=== PATIENT | male | born 1945 | race Caucasian/White ===

== ENCOUNTER 2019-04-13 11:26 | Outpatient (CLI) | payer MEDICARE, OTHER ==
--- NOTE | 2019-04-18 16:23 | XRAY Report ---
Reason: L 3RD DIGIT TRIGGER FINGER Procedure Date: 04/13/2019 Accession Number: [id number] / [id number] Procedure: XR - Hand 3 View LT CPT Code: FULL RESULT: EXAM: LEFT HAND RADIOGRAPHY EXAM DATE: 04/13/2019 11:44 AM. CLINICAL HISTORY: Left 3rd digit trigger finger. COMPARISON: None. TECHNIQUE: 3 views. FINDINGS: Bones: Normal. No fractures or bone lesions. Joints: There are mild degenerative changes at the first carpometacarpal articulation. There is mild joint space narrowing of predominantly distal interphalangeal joints. No specific abnormality is identified in the third ray compared to the other fingers. Soft Tissues: Normal. No soft tissue swelling. IMPRESSION: Mild degenerative changes. RADIA
== END 2019-04-13 11:27 | disposition home or self-care (01) ==
LOC: DI 11:26
PROVIDERS: ATTEND Internal Medicine
DX: M18.12 Unilateral primary osteoarthritis of first carpometacarpal joint, left hand (principal); M19.042 Primary osteoarthritis, left hand

== ENCOUNTER 2019-10-28 10:12 | Outpatient (CLI) | payer MEDICARE, OTHER ==
--- NOTE | 2019-10-28 14:39 | XRAY Report ---
Reason: PT 5TH DIGIT "LOOSE" AFTER TRAUMA Procedure Date: 10/28/2019 Accession Number: [id number] / [id number] Procedure: XR - Toe(s) LT CPT Code: Final Report FULL RESULT: EXAM: LEFT TOE RADIOGRAPHY EXAM DATE: 10/28/2019 10:39 AM. CLINICAL HISTORY: Hit toe in May, fifth digit "loose" after trauma. COMPARISON: None. TECHNIQUE: 3 views. FINDINGS: Bones: There is a comminuted fracture of the fifth proximal phalangeal diaphysis with evidence of ongoing remodeling including periosteal reaction and partial osseous bridging. AP view is suggestive of potential distal intra-articular extension. Joints: Normal. No subluxations. Soft Tissues: Normal. No soft tissue swelling. IMPRESSION: Ongoing remodeling of comminuted proximal fifth phalanx fracture. RADIA
== END 2019-10-28 10:13 | disposition home or self-care (01) ==
LOC: DI 10:12
PROVIDERS: ATTEND Internal Medicine
DX: S92.512D Displaced fracture of proximal phalanx of left lesser toe(s), subsequent encounter for fracture with routine healing (principal)
CPT/HCPCS: 73660

== ENCOUNTER 2020-10-23 02:05 | Outpatient (CLI) | payer MEDICARE, OTHER | END 2020-10-23 02:06 | disposition critical access hospital (66) | LOC: EMS 02:05 | PROVIDERS: ATTEND Surgery | DX: M79.601 Pain in right arm (principal); R20.0 Anesthesia of skin | CPT/HCPCS: A0425; A0429 ==

== ENCOUNTER 2020-10-23 02:21 | Emergency (ER) | payer MEDICARE, OTHER ==
[2020-10-23] MEDS ORDERED: ACETAMINOPHEN 325 MG TABLET PO STA (02:31)
--- NOTE | 2020-10-23 02:32 | ED Physician Documentation ---
PD HPI UPPER EXT INJURY - Stated complaint Stated Complaint: R ARM NUMBNESS - History obtained from History obtained from: Patient, EMS - History of Present Illness Location: Right, Shoulder, Other (he states he awoke from sleep and noted right shoulder pain and feeling of complete weakness and numbness in right arm. Also laceration on bridge of nose. Denies fall/injury. States he had had some 3 drinks earlier. Slept on bed, and not on hard surface. Denies neck pain nor headache.) Type of injury: Other (he is not aware of a fall nor injury but does have shoulder pain/tenderness and lac on bridge of nose. He states had been drinking earlier in the evening.) Where injury occurred: Home Timing - details: Abrupt onset, Still present (he says the arm is starting to have some feeling come back but still cannot move it.) Improved by: Rest Worsened by: Moving, Palpating (at proximal humerus area.) Associated symptoms: Weakness (right arm), Numbness (just right arm). No: Swelling, Discolored Similar symptoms before: Has not had sx before Recently seen: Not recently seen Review of Systems Constitutional: denies: Fever Nose: denies: Rhinorrhea / runny nose, Congestion Throat: denies: Sore throat Cardiac: denies: Chest pain / pressure Respiratory: denies: Cough GI: denies: Abdominal Pain, Vomiting, Diarrhea Skin: reports: Laceration (s) (small on bridge of nose, unknown injury.) Musculoskeletal: denies: Neck pain, Back pain Neurologic: reports: Focal weakness, Numbness. denies: Generalized weakness, Near syncope, Altered mental status, Headache PD PAST MEDICAL HISTORY - Past Medical History Cardiovascular: None Respiratory: None Neuro: None Endocrine/Autoimmune: None - Present Medications Home Medications: Ambulatory Orders Medication Instructions Recorded Confirmed Aspirin [Aspirin EC] 10/23/20 10/23/20 Simvastatin [Zocor] 10/23/20 metFORMIN [Glucophage] 10/23/20 - Allergies Allergies/Adverse Reactions: Allergies Allergy/AdvReac Type Severity Reaction Status Date / Time No Known Drug Allergies Allergy Verified 10/23/20 02:41 PD ED PE NORMAL - Vitals Vital signs reviewed: Yes - General General: Alert and oriented X 3, Well developed/nourished - HEENT HEENT: Pharynx benign (no tongue lesions.), Other (head not tender. Nose with small lac on bridge. No nasal deformity nor tenderness. ) - Neck Neck: Supple, no meningeal sign, No bony TTP, No adenopathy - Cardiac Cardiac: RRR, No murmur - Respiratory Respiratory: Clear bilaterally - Abdomen Abdomen: Soft, Non tender - Back Back: No CVA TTP, No spinal TTP - Derm Derm: Normal color, Warm and dry - Extremities Extremities: Other (right shoulder with tenderness with apparent anterior dislocation. The right arm is without movement. Minimal sensation to pinprick around elbow and proximal forearm. No sensation in hand. Has cap refill and pulses in wrist/fingers. ) - Neuro Neuro: Alert and oriented X 3, Normal speech Results - Vitals Vitals: Vital Signs - 24 hr 10/23/20 10/23/20 02:34 02:43 Temperature 36.2 C L 36.2 C L Heart Rate 82 82 Respiratory 18 18 Rate Blood Pressure 162/89 H 162/89 H O2 Saturation 97 97 Oxygen O2 Source Room air - Rads (name of study) right shoulder Radiology: Prelim report reviewed (anterior dislocation without fracture), See rad report post reduction Radiology: Prelim report reviewed (improved location, no fractures), See rad report Procedures - Reduction Body part reduced: Right, Shoulder Fracture or dislocation: Dislocation Anesthesia: Other (no medication needed) Shoulder reduction technique: [place] / ext rotation Reduction aftercare: Xray confirms reduction, Alignment improved, Sling, Patient tolerated well. No: NV intact (he is starting to have some slight movement of forearm, and can move shoulder better now for sure. Presume neuropraxia with the dislocation and will give it a day or so in sling to see if improves.) PD MEDICAL DECISION MAKING - ED course Complexity details: considered differential (Injury of the right shoulder and a small laceration on the bridge of the nose that does not need any sutures or tape. One would presume he fell while intoxicated without remembering. No stigmata of seizure and no headache or altered mentation.), d/w patient Departure - Departure Disposition: 01 Home, Self Care Clinical Impression: Acute radial nerve palsy of right upper extremity Laceration of nose Qualifiers: Encounter type: initial encounter Qualified Code(s): S01.21XA - Laceration without foreign body of nose, initial encounter Anterior shoulder dislocation Qualifiers: Encounter type: initial encounter Laterality: right Qualified Code(s): S43.014A - Anterior dislocation of right humerus, initial encounter Condition: Stable Record reviewed to determine appropriate education?: Yes Instructions: ED Dislocation Shoulder Redu Follow-Up: David Daugherty MD [Primary Care Provider] - Dashawn Romero MD [Provider Admit Priv/Credential] - Comments: I presume you had fallen or struck your shoulder causing the dislocation. The dislocation can put a stretch on the nerves that run through the shoulder causing the weakness and numbness in your arm. With the shoulder back in place I would anticipate improvement in the nerve over the next several hours to a day or so. Use a sling to provide support for the shoulder and arm. You will want the arm in the sling fairly regularly for 2 to 3 weeks. In order to dislocate it which you would have had to tear some of the rotator cuff muscles and these need time to heal. Follow-up with orthopedics in about 1 to 1-1/2 weeks for recheck of the shoulder. Return if the arm is not having improved sensation and movement however in the next day or 2. Tylenol or ibuprofen as needed for pains. For the superficial laceration on your nose, just clean with soap and water and apply ointment once or twice daily. Recheck if infection.
[2020-10-23 02:40] VITALS: BP 162/89
--- NOTE | 2020-10-23 07:12 | XRAY Report ---
PROCEDURE: Shoulder 3 View RT INDICATIONS: shoulder pain and arm weakness TECHNIQUE: 3 views of the shoulder were acquired. COMPARISON: Correlation is made with prior chest radiograph, 06/14/2016 FINDINGS: Bones: There is a right anterior shoulder dislocation. No adelina associated fracture is seen. No adelina bony [place] fracture is seen. Degenerative changes are seen, with mild subacromial spurring. No suspicious bony lesions. Visualize d ribs appear intact. Soft tissues: No suspicious soft tissue calcifications. Right axillary clips are seen. IMPRESSION: Right anterior shoulder dislocation. Note: No significant discrepancy from the preliminary report. Reviewed by: Rolando Moore MD on 10/23/2020 6:11 AM [facility] Approved by: Rolando Moore MD on 10/23/2020 6:11 AM [facility] Station ID: [id number]
--- NOTE | 2020-10-23 07:13 | XRAY Report ---
PROCEDURE: Shoulder 2 View RT INDICATIONS: post reduction TECHNIQUE: 2 views of the shoulder were acquired. COMPARISON: Prior 10/23/2020 images FINDINGS: Bones: The previously seen shoulder dislocation has been reduced. No adelina fracture can be seen. No s uspicious bony lesions. Visualized ribs appear intact. Soft tissues: No suspicious soft tissue calcifications. Right axillary clips are seen. Mild interst itial prominence is seen within the visualized right lung. IMPRESSION: Right shoulder relocation. Mild interstitial prominence of the right lung. Differential diagnosis includes artifact from incompl ete inspiratory result as well as atypical infection and pulmonary edema. Please consider a short-ter m follow-up 2 view chest series (performed in deep inspiration) for further evaluation. Note: No significant discrepancy from the preliminary report. Reviewed by: Rolando Moore MD on 10/23/2020 6:12 AM [facility] Approved by: Rolando Moore MD on 10/23/2020 6:12 AM [facility] Station ID: [id number]
== END 2020-10-23 04:11 | disposition home or self-care (01) ==
LOC: EDUNIT# → ED 02:21
DX: S43.014A Anterior dislocation of right humerus, initial encounter (principal); S44.21XA Injury of radial nerve at upper arm level, right arm, initial encounter; S01.21XA Laceration without foreign body of nose, initial encounter; X58.XXXA Exposure to other specified factors, initial encounter; Y92.009 Unspecified place in unspecified non-institutional (private) residence as the place of occurrence of the external cause; Z79.82 Long term (current) use of aspirin
CPT/HCPCS: 23650; 73030; 99283; 99284; A9270

== ENCOUNTER 2020-10-26 11:24 | Emergency (ER) | payer MEDICARE, OTHER ==
--- NOTE | 2020-10-26 12:31 | ED Physician Documentation ---
History of Present Illness - Stated complaint Stated Complaint: RT ARM NUMBNESS - Chief complaint Chief Complaint: Trauma Ext - History obtained from History obtained from: Patient - History of Present Illness Pain level max: 3 Pain level now: 2 - Additonal information Additional information: 75-year-old male presents to the emergency department today with right arm numbness. He states he had a shoulder dislocation 3 days ago. He states that that feels improved and the numbness around the shoulder itself is better, however his hand and forearm are still numb. He states he has tingling in the forearm, the hand is completely numb. Nothing makes it better or worse. No recurrent fall. He states 3 days ago he was drinking and fell in the bathroom. He states that he landed on the bathtub. No other neurological deficits. No difficulty with speech. No headache. No neck or back pain. Patient is right- handed. Review of Systems Constitutional: denies: Fever, Chills GI: denies: Vomiting, Diarrhea Skin: denies: Rash Musculoskeletal: denies: Neck pain, Back pain Neurologic: denies: Headache, Head injury, LOC PD PAST MEDICAL HISTORY - Past Medical History Past Medical History: Yes Cardiovascular: None Respiratory: None Neuro: None Endocrine/Autoimmune: None Derm: Other - Past Surgical History Past Surgical History: Yes General: Cholecystectomy Ortho: Rotator cuff repair Derm: Skin cancer surgery - Present Medications Home Medications: Ambulatory Orders Medication Instructions Recorded Confirmed Aspirin [Aspirin EC] 81 mg PO DAILY 10/23/20 10/26/20 Simvastatin [Zocor] 10 mg PO DAILY 10/23/20 10/26/20 metFORMIN [Glucophage] 500 mg PO DAILY 10/23/20 10/26/20 Telmisartan/Hydrochlorothiazid 1 tab PO DAILY 10/26/20 10/26/20 [Micardis Hct 80-12.5 mg Tablet] - Allergies Allergies/Adverse Reactions: Allergies Allergy/AdvReac Type Severity Reaction Status Date / Time No Known Drug Allergies Allergy Verified 10/26/20 11:34 - Social History Does the pt smoke?: No Smoking Status: Never smoker Does the pt drink ETOH?: Yes ETOH Use: Liquor Does the pt have substance abuse?: No - Immunizations Immunizations are current?: Yes - POLST Patient has POLST: No PD ED PE NORMAL - Vitals Vital signs reviewed: Yes - General General: Alert and oriented X 3, No acute distress - HEENT HEENT: Moist mucous membranes, Other (No scalp hematomas. Small laceration to the bridge of the nose.) - Neck Neck: Supple, no meningeal sign, No bony TTP, Other (No step-off or deformity. Full range of motion without pain.) - Cardiac Cardiac: RRR - Respiratory Respiratory: No respiratory distress, Clear bilaterally - Abdomen Abdomen: Soft, Non tender, Non distended - Derm Derm: Warm and dry - Neuro Neuro: Alert and oriented X 3 - Psych Psych: Normal mood, Normal affect - Free text exam Free text exam: No tenderness or deformity over the right upper extremity. No tenderness about the glenohumeral joint. Vascularly intact. Brisk cap refill. Mild bruising to the bicep. Decreased sensation over the dorsum and palmar aspect of the hand. Limited range of motion of the fingers secondary to "numbness". axillary nerve intact. No tenderness over the forearm or the hand. Results - Vitals Vitals: Vital Signs - 24 hr 10/26/20 10/26/20 11:35 13:17 Temperature 36.5 C 36.6 C Heart Rate 100 77 Respiratory 16 16 Rate Blood Pressure 158/106 H 135/76 H O2 Saturation 96 98 Oxygen O2 Source Room air - Rads (name of study) R humerus xray Radiology: Prelim report reviewed, EMP read contemporaneously, See rad report (No acute abnormality) r forearm xray Radiology: Prelim report reviewed, EMP read contemporaneously, See rad report (No acute abnormality) PD MEDICAL DECISION MAKING - ED course Complexity details: reviewed results, re-evaluated patient, considered differential, d/w patient, d/w nursing consultant ED course: Discussed the case with orthopedics, Dr. Gu. Patient appears to have a neuropraxia from the shoulder dislocation. Unclear how long the shoulder was dislocated for. This may take days to weeks to heal. He is improving, albeit gradually. We will have him continue to wear the sling. We will have him follow-up with orthopedics. No acute findings on x-ray today. No recurrent dislocation. Patient counseled regarding signs and symptoms for which I believe and urgent re-evaluation would be necessary. Patient with good understanding of and agreement to plan and is comfortable going home at this time This document was made in part using voice recognition software. While efforts are made to proofread this document, sound alike and grammatical errors may occur. Departure - Departure Disposition: 01 Home, Self Care Clinical Impression: Neurapraxia of right upper extremity Qualifiers: Encounter type: initial encounter Qualified Code(s): S44.91XA - Injury of un specified nerve at shoulder and upper arm level, right arm, initial encounter Condition: Good Instructions: ED Palsy Radial Nerve, ED Palsy Unlar Nerve Follow-Up: [facility] [Provider Group] David Daugherty MD [Primary Care Provider] - Luis Gu MD [Provider Admit Priv/Credential] - Comments: this may take several weeks to months to fully recover. You need to follow up with orthopedics as previously instructed. Discharge Date/Time: 10/26/20 13:58
[2020-10-26 13:18] VITALS: BP 135/76
--- NOTE | 2020-10-26 13:24 | XRAY Report ---
PROCEDURE: Forearm RT INDICATIONS: fall, R arm pain TECHNIQUE: 2 views of the forearm were acquired. COMPARISON: Concurrent study of the right humerus. FINDINGS: Bones: No fractures or dislocations. No suspicious bony lesions. Soft tissues: No suspicious soft tissue calcifications or masses. IMPRESSION: 1. No fracture or dislocation in the forearm. Reviewed by: Yohannes Sanon MD on 10/26/2020 1:23 PM [facility] Approved by: Yohannes Sanon MD on 10/26/2020 1:23 PM PST Station ID: [id number]
--- NOTE | 2020-10-26 13:24 | XRAY Report ---
PROCEDURE: Humerus RT INDICATIONS: fall, R arm pain TECHNIQUE: 3 views of the humerus were acquired. COMPARISON: None. FINDINGS: Bones: No fractures or dislocations. No suspicious bony lesions. Soft tissues: No suspicious soft tissue calcifications. There are surgical clips in the right axilla ry region partially visualized. IMPRESSION: 1. No fracture or dislocation of the humerus. Reviewed by: Yohannes Sanon MD on 10/26/2020 1:22 PM [facility] Approved by: Yohannes Sanon MD on 10/26/2020 1:22 PM PST Station ID: [id number]
== END 2020-10-26 13:58 | disposition home or self-care (01) ==
LOC: ED 11:24
DX: S44.21XA Injury of radial nerve at upper arm level, right arm, initial encounter (principal); S01.21XA Laceration without foreign body of nose, initial encounter; W18.30XA Fall on same level, unspecified, initial encounter; Y92.002 Bathroom of unspecified non-institutional (private) residence as the place of occurrence of the external cause; Z79.82 Long term (current) use of aspirin
CPT/HCPCS: 99283; 99284

== ENCOUNTER 2021-02-03 07:41 | Outpatient (CLI) | payer MEDICARE, OTHER ==
[2021-02-03] MEDS ORDERED: IOPAMIDOL-300 100 ML VIAL ONE (07:44)
[2021-02-03] MEDS ORDERED: IOPAMIDOL-300 100 ML VIAL IVP ONE (08:32)
--- NOTE | 2021-02-03 15:24 | CT Report ---
PROCEDURE: IVP INDICATIONS: HEMATURIA CONTRAST: IV CONTRAST: Isovue 300 ml: 140 PO CONTRAST: *NO PO CONTRAST TECHNIQUE: After the administration of intravenous contrast, 5 mm thick sections acquired from the diaphragms to the symphysis. 5 mm thick coronal and sagittal reformats were acquired. For radiation dose reducti on, the following was used: automated exposure control, adjustment of mA and/or kV according to leonardo ent size. COMPARISON: None. FINDINGS: Image quality: Excellent. Lung bases: Lung bases are clear. Heart size is normal. Urinary system: Both kidneys are normal in size and enhancement. Contrast-filled renal calyces are normal in morphology. Contrast filled portions of both ureters are normal in caliber. Urinary bladde r wall is trabeculated. There is thickening of the posterior superior urinary bladder wall measuring roughly 10 mm in thickness (series 10 image 34). Solid organs: Liver and spleen are normal in size. Indeterminate low-density ill-defined focus withi n the right hepatic lobe posteriorly measuring 12 mm (series 6 image 25). Gallbladder is surgically a bsent Biliary system is non dilated. Pancreas enhances normally. No adrenal nodules. Peritoneum and bowel: Diverticulosis of the descending and sigmoid colon. No evidence of acute divert iculitis. Appendix is not seen. No evidence of appendicitis. Bowel loops demonstrate otherwise normal wall thickness and caliber. No free fluid or air. Nodes and vessels: No retroperitoneal or mesenteric adenopathy by size criteria. Aorta and inferior vena cava are normal in size. Abdominal wall: No ventral hernias. Pelvis: No pathologic free pelvic fluid. No inguinal hernias or adenopathy. Bones: No suspicious bony lesions. No vertebral body compression fractures. IMPRESSION: 1. No evidence of urinary tract calcification, nor obstruction. 2. No evidence of renal neoplasm. 3. Thickening of the posterior superior urinary bladder, possibly neoplastic. Cystoscopy is recommend ed for further assessment. 4. Urinary bladder trabeculation, consistent with chronic bladder outlet obstruction. Reviewed by: Sukhi Gardner MD on 02/03/2021 3:23 PM PDT Approved by: Sukhi Gardner MD on 02/03/2021 3:23 PM PDT Station ID: [id number]
== END 2021-02-03 07:42 | disposition home or self-care (01) ==
LOC: DI 07:41
PROVIDERS: ATTEND Physician Assistant Medical
DX: R93.41 Abnormal radiologic findings on diagnostic imaging of renal pelvis, ureter, or bladder (principal)
CPT/HCPCS: 74178; Q9967

== ENCOUNTER 2021-06-14 14:05 | Outpatient (CLI) | payer MEDICARE, OTHER | END 2021-06-14 14:06 | disposition home or self-care (01) | LOC: LAB.N 14:05 | PROVIDERS: ATTEND Physician Assistant | DX: Z01.812 Encounter for preprocedural laboratory examination (principal); Z20.822 Contact with and (suspected) exposure to COVID-19 ==

== ENCOUNTER 2021-06-25 09:10 | Outpatient (CLI) | payer MEDICARE, OTHER ==
[2021-06-25 12:19] LABS: CALCIUM 9.1 mg/dL (8.5-10.3); CREATININE 1.2 mg/dL (0.6-1.2); POTASSIUM 4.1 mmol/L (3.5-5.0)
== END 2021-06-25 09:11 | disposition home or self-care (01) ==
LOC: LAB.N 09:10
PROVIDERS: ATTEND Specialist
DX: D41.4 Neoplasm of uncertain behavior of bladder (principal); Z87.442 Personal history of urinary calculi; N40.0 Benign prostatic hyperplasia without lower urinary tract symptoms; R31.0 Gross hematuria
CPT/HCPCS: 36415; 80048

== ENCOUNTER 2021-06-25 09:15 | Outpatient (CLI) | payer MEDICARE, OTHER ==
--- NOTE | 2021-06-25 10:08 | XRAY Report ---
PROCEDURE: Abdomen 1 View X-Ray INDICATIONS: RETENTION OF URINE TECHNIQUE: 2 AP views of the abdomen were acquired. COMPARISON: CT IVP 02/03/2021 FINDINGS: Surgical changes and devices: Bilateral percutaneous nephrostomy tubes and a right ureteral stent are present. Cholecystectomy clips are noted.. Bowel: No pneumoperitoneum. The bowel gas pattern is normal. Soft tissues: No masses; visualized solid organ contours appear normal in size. No suspicious abdom inal calcifications. A phlebolith is noted in the pelvis. Bones: No suspicious bony abnormalities. Degenerative changes are seen in the hips and spine. IMPRESSION: Bilateral percutaneous nephrostomy tubes and a right ureteral stent are present. No suspicious calcif ication is seen. Reviewed by: Ron Payne MD on 06/25/2021 10:06 AM PDT Approved by: Ron Payne MD on 06/25/2021 10:06 AM PDT Station ID: [id number]
== END 2021-06-25 09:16 | disposition home or self-care (01) ==
LOC: DI.N 09:15
PROVIDERS: ATTEND Specialist
DX: D41.4 Neoplasm of uncertain behavior of bladder (principal); Z87.442 Personal history of urinary calculi; N40.0 Benign prostatic hyperplasia without lower urinary tract symptoms; R31.0 Gross hematuria; Z93.6 Other artificial openings of urinary tract status; Z96.0 Presence of urogenital implants
CPT/HCPCS: 36415; 80048

== ENCOUNTER 2021-08-09 06:55 | Day surgery (SDC) | payer MEDICARE, OTHER ==
[2021-08-09] MEDS ORDERED: CEFAZOLIN SODIUM IN 0.9 % NACL 2 GM/100 ML BAG IV ONE (07:14)
[2021-08-09] MEDS ORDERED: LACTATED RINGERS 1,000 ML IV ONE ×2 (07:42→10:22)
--- NOTE | 2021-08-09 08:58 | ANESTHESIA ---
Pre-Anesthesia VS, & Labs - Diagnosis bladder cancer - Procedure port placement Vital Signs: Temp Pulse Resp BP Pulse Ox 36.0 C L 88 18 131/80 H 100 08/09/21 07:46 08/09/21 07:46 08/09/21 07:46 08/09/21 07:46 08/09/21 07:46 Height: 5 ft 10 in Weight (kg): 76 kg Body Mass Index: 24.0 BMI Classification: Healthy weight - NPO >8 hours - Lab Results Current Lab Results: Laboratory Tests 08/09/21 08:10: POC Whole Bld Glucose 113 H Home Medications and Allergies Aspirin [Aspirin EC] 81 mg PO DAILY 10/23/20 Simvastatin [Zocor] 40 mg PO DAILY 10/23/20 metFORMIN [Glucophage] 750 mg PO BID 10/23/20 Telmisartan/Hydrochlorothiazid [Micardis Hct 80-12.5 mg Tablet] 1 tab PO DAILY 10/26/20 Multivitamin 1 tab PO DAILY 08/02/21 OLANZapine [Zyprexa Zydis] 1 tab PO DAILY 08/02/21 Ondansetron Odt [Zofran Odt] 2 tab PO Q8HR PRN 08/02/21 Prochlorperazine Maleate [Compazine] 1 tab PO Q6HR PRN 08/02/21 dexAMETHasone [Decadron] 4 mg PO DAILY 08/02/21 Allergies/Adverse Reactions: Allergies Allergy/AdvReac Type Severity Reaction Status Date / Time No Known Drug Allergies Allergy Verified 08/02/21 10:54 Anes History & Medical History - Anesthetic History Anesthesia Complications: reports: No previous complications - Medical History Cardiovascular: reports: None Pulmonary: reports: None Gastrointestinal: reports: None Urinary: reports: Other Neuro: reports: None Musculoskeletal: reports: None Endocrine/Autoimmune: reports: None Skin: reports: Other Smoking Status: Former smoker History of Cancer?: Yes - Surgical History General: reports: Cholecystectomy Urologic: reports: Ureterolithotomy (stones) Orthopedic: reports: Rotator cuff repair Dermatologic: reports: Skin cancer surgery Exam General: Alert, Oriented x3 Dental: WNL Mouth Opening: Greater than 4 Fingerbreadths Neck Mobility: Normal Mallampati classification: II Thyromental Distance: greater than 6 cm Respiratory: Lungs clear Cardiovascular: Regular rate, Normal S1, Normal S2 Mental/Cognitive Status: Alert/Oriented X3 Plan Anesthesia Type: General, MAC, Total IV Consent for Procedure(s) Verified and Reviewed: Yes Code Status: Attempt Resuscitation ASA classification: 3-Severe systemic disease Is this case an emergency?: No
[2021-08-09] MEDS ORDERED: BUPIVACAINE 0.5% PF 10 ML VIAL ONE (09:15)
[2021-08-09] MEDS ORDERED: LIDOCAINE 2%-EPI 1:100000 20 ML MDV ONE (09:15)
[2021-08-09] MEDS ORDERED: PROPOFOL 500 MG/50 ML 500 MG/50 ML VIAL ONE (09:33)
[2021-08-09] MEDS ORDERED: LIDOCAINE 1%-EPI 1:100000 20 ML MDV SUBQ ONE ×3 (09:55)
[2021-08-09] MEDS ORDERED: BUPIVACAINE 0.5% PF 30 ML VIAL SUBQ ONE ×3 (09:56)
--- NOTE | 2021-08-09 10:17 | OPERATIVE REPORT ---
Operative Report - General Procedure Date: 08/09/21 Planned Procedure: Left subclavian port Pre-Op Diagnosis: Bladder cancer Procedure Performed: Left subclavian infusa-port Post Op Diagnosis: Bladder - Procedure Note Primary Surgeon: Polina Anesthesia Provider: JAGRUTI Cano Anesthesia Technique: MAC Estimated Blood Loss (mL): 10 Indications: Port for chemotherapy Findings: Port in good position in the superior vena cava Complications: none apparent - Other Other Information/Narrative: After obtaining informed consent, the patient is brought to the operating room and placed in supine position on the operating table. Following successful induction of sedation with monitored anesthesia care and appropriate padding of all bony prominences, the left chest and neck were prepped and draped in the standard surgical fashion. A timeout was held per scope protocol. All elements of the surgical safety checklist were followed before, during, and after the procedure. Following infiltration with local anesthetic to create a field block, the left subclavian vein was accessed in the deltopectoral groove. The J-wire was gently placed into the vein. Fluoroscopy was used to confirm the position of the wire and in the subclavian vein. We anesthetized the existing healed scar in the area around it for placement of the port itself. An incision was created here and carried down through the skin and subcutaneous tissue. A pocket was created with blunt dissection. The port tubing was attached to the tunneling device and passed from the access site of the vein into the pocket. It was trimmed to an appropriate length and the port attached. The port was sewn into place in the pocket. The dilator and introducer were then passed over the J-wire that was in the subclavian vein. The J-wire and dilator were removed leaving only the introducer. The tubing was then passed through the introducer and the introducer cracked and removed per wheel truer's directions. The port was then checked for function and flushed and elina easily. Additional local anesthetic was applied to the chest wall. The port pocket was closed with interrupted Vicryl sutures and Monocryl stitches were placed in both skin incision sites. All sponge, needle, and instrument counts were correct at the conclusion of the case. Chest x-ray in the postanesthesia care unit revealed the port in good position in the superior vena cava without evidence of pneumothorax.
--- NOTE | 2021-08-09 10:31 | XRAY Report ---
PROCEDURE: OR Port-A-Cath INDICATIONS: port placement TECHNIQUE: Single intraoperative highly collimated fluoroscopic image of the chest. COMPARISON: None. FINDINGS: Highly comminuted intraoperative fluoroscopic image of the chest demonstrates a partially visualized catheter with distal tip in the inferior aspect of the SVC. IMPRESSION: Highly comminuted intraoperative fluoroscopic image of the chest demonstrates a partially visualized catheter with distal tip in the inferior aspect of the SVC. Reviewed by: Pete Bernal MD on 08/09/2021 10:30 AM PDT Approved by: Pete Bernal MD on 08/09/2021 10:30 AM PDT Station ID: [id number]
[2021-08-09 10:50] VITALS: BP 115/72
--- NOTE | 2021-08-09 10:50 | XRAY Report ---
PROCEDURE: Chest for Line Placement INDICATIONS: Port placement TECHNIQUE: One view of the chest was acquired. COMPARISON: 07/28/2021 FINDINGS: Surgical changes and devices: Left chest wall Port-A-Cath tip is in SVC. Surgical clips are again see n in right axilla. Lungs and pleura: No pleural effusions or pneumothorax. Lungs are clear. Mediastinum: Mediastinal contours appear normal. Heart size is normal. Bones and chest wall: No suspicious bony lesions. Overlying soft tissues appear unremarkable. IMPRESSION: Left chest wall Port-A-Cath tip is in the region of SVC. No focal infiltrate, pleural effusion or pne umothorax. Reviewed by: Hay Herbert MD on 08/09/2021 10:48 AM PDT Approved by: Hay Herbert MD on 08/09/2021 10:48 AM PDT Station ID: [id number]
--- NOTE | 2021-08-09 16:36 | ANESTHESIA POST OP EVALUATION ---
Anesthesia Post Eval - Post Anesthesia Eval Vitals: Last Vital Signs Temp 36.9 C 08/09/21 10:49 Pulse 57 L 08/09/21 10:49 Resp 12 08/09/21 10:49 BP 115/72 08/09/21 10:49 Pulse Ox 100 08/09/21 10:49 CV Function Including HR & BP: Stable Pain Control: Satisfactory Nausea & Vomiting: Negative Mental Status: Baseline Respiratory Status: Airway Patent Hydration Status: Satisfactory Anesthesia Complications: None
== END 2021-08-09 06:56 | disposition home or self-care (01) ==
LOC: SDS 06:55
PROVIDERS: ATTEND Surgery
DX: C67.9 Malignant neoplasm of bladder, unspecified (principal); I10 Essential (primary) hypertension; E11.9 Type 2 diabetes mellitus without complications; N40.0 Benign prostatic hyperplasia without lower urinary tract symptoms; Z79.82 Long term (current) use of aspirin; Z79.84 Long term (current) use of oral hypoglycemic drugs; Z79.52 Long term (current) use of systemic steroids; Z79.899 Other long term (current) drug therapy; Z87.891 Personal history of nicotine dependence; Z87.828 Personal history of other (healed) physical injury and trauma; Z85.820 Personal history of malignant melanoma of skin
CPT/HCPCS: 36561; 71045; C1788; J0690; J7120

== ENCOUNTER 2021-12-28 08:41 | Outpatient (CLI) | payer MEDICARE, OTHER ==
--- NOTE | 2021-12-28 18:00 | Ultrasound Report ---
PROCEDURE: Retroperitoneal INDICATIONS: BLADDER CA TECHNIQUE: Real-time scanning was performed of the retroperitoneal organs, with image documentation. COMPARISON: None. FINDINGS: Kidneys: Kidneys are normal in size. Right kidney measures 9.2 cm long; left kidney measures 10.9 c m long. Right renal cortical thickness is 1.3 cm; left renal cortical thickness is 1.4 cm. No solid masses, hydronephrosis, or nephrolithiasis. Bladder: Surgically absent Miscellaneous: No free pelvic fluid. IMPRESSION: 1. Status post cystectomy. 2. Kidneys are sonographically normal. Reviewed by: Diamond Bran MD, PhD on 12/28/2021 5:59 PM PST Approved by: Diamond Bran MD, PhD on 12/28/2021 5:59 PM PST Station ID: [id number]
== END 2021-12-28 08:42 | disposition home or self-care (01) ==
LOC: DI 08:41
PROVIDERS: ATTEND Nurse Practitioner Adult Health
DX: C67.4 Malignant neoplasm of posterior wall of bladder (principal); Z90.6 Acquired absence of other parts of urinary tract